=== PATIENT | female | born 1935 | race Caucasian/White ===

== ENCOUNTER 2022-10-30 14:30 | Inpatient (IN) | payer MEDICARE, OTHER ==
[2022-10-30] VITALS (7 sets, daily range): BP systolic 98–99; BP diastolic 49–60; PULSE 86–118; RESP 18–22; TEMP 98.8–100.4; O2SAT 88–100
[~2022-10-30] VITALS: Ht 152.4 cm; Wt 69.9 kg
[2022-10-30] MEDS ORDERED: ALBUTEROL 0.083% 2.5 MG/3 ML NEBU INH ONE (14:45)
[2022-10-30] MEDS ORDERED: PIPERACILLIN/TAZOBACTAM 4.5 GM in DEXTROSE 5% 100 ML IV ONE (14:45)
[2022-10-30] MEDS ORDERED: methylPREDNISolone SS 125 MG/2 ML VIAL IVP ONE (14:45)
[2022-10-30] MEDS ORDERED: ACETAMINOPHEN EXTRA STRENGTH 500 MG TAB PO ONE (14:55)
[2022-10-30] MEDS ORDERED: PIPERACILLIN/TAZOBACTAM 4.5 GM VIAL IV ONE (15:06)
[2022-10-30 15:13] LABS: BASOPHILS # (AUTO) 0.1 K/uL (0.00-0.22); BASOPHILS % (AUTO) 0.5 % (0.0-2.0); HEMATOCRIT 35.9 % (36-48); HEMOGLOBIN 11.6 g/dL (12.0-16.0); LYMPHOCYTES # (AUTO) 6.3 K/uL (2.5-16.5); LYMPHOCYTES % (AUTO) 41.2 % (20.5-51.1); MEAN CORPUSCULAR HEMOGLOBIN 26 pg (27-31); MEAN CORPUSCULAR HGB CONC 32 g/dL (33-37); MONOCYTES # (AUTO) 1.3 K/uL (0.8-1.0); MONOCYTES % (AUTO) 8.3 % (1.7-9.3); NEUTROPHILS # (AUTO) 7.6 K/uL (1.8-7.7); PLATELET COUNT (AUTO) 436 K/uL (140-450); RED BLOOD CELL COUNT(AUTO) 4.48 MIL/uL (4.20-5.40); RED CELL DISTRIBUTION WIDTH 15.9 % (11.6-13.7); WHITE BLOOD COUNT (AUTO) 15.3 K/uL (4.8-10.8)
[2022-10-30 15:30] LABS: ALBUMIN 1.7 g/dL (3.4-5.0); ANION GAP 15.8 (8-16); ASPARTATE AMINOTRANSFERASE 41 U/L (15-37); CARBON DIOXIDE 25.3 mmol/L (21-32); CHLORIDE 102 mmol/L (98-107); CREATININE 0.9 mg/dL (0.6-1.3); GLUCOSE 152 mg/dL (74-106); POTASSIUM 4.1 mmol/L (3.5-5.1); SODIUM SERUM 139 mmol/L (136-145); TOTAL BILIRUBIN 0.5 mg/dL (0.0-1.0); UREA NITROGEN, BLOOD 23 mg/dL (7-18)
--- NOTE | 2022-10-30 15:30 | NUR ---
ONEYDA FROM HOME FOR GEN WEAKNESS, RECENTLY TREATED FOR UTI.
--- NOTE | 2022-10-30 15:41 | NUR ---
CHANGED 4L NASAL CANNULA TO 15L CURAPLEX BUBBLE NASAL CANNULA. SATURATION 95% TO 97%. 10 MG ALBUTEROL GIVEN. BREATH SOUNDS WERE DIMINISHED, BUT IMPROVED AFTER TREATMENT. WILL CONTINUE TO MONITOR PT.
[2022-10-30] MEDS ORDERED: NACL 0.9% 1,000 ML IV ONE (18:40)
[2022-10-30] MEDS ORDERED: ZOLPIDEM 5 MG TAB PO PRN (18:55)
[2022-10-30] MEDS ORDERED: guaiFENesin DM 200/20 MG-10 ML 10 ML UDC PO PRN (18:55)
[2022-10-30] MEDS ORDERED: HYDROcodone/APAP 7.5/325 MG 1 TAB PO PRN (18:55)
[2022-10-30] MEDS ORDERED: ONDANSETRON 4 MG/2 ML VIAL IM/IVP PRN (18:55)
[2022-10-30] MEDS ORDERED: POTASSIUM CHLORIDE 10 MEQ TABER PO PRN (18:55)
[2022-10-30] MEDS ORDERED: DOCUSATE SODIUM 100 MG GELCAP PO PRN (18:55)
[2022-10-30] MEDS ORDERED: ALBUTEROL SULFATE/IPRATROPIU 3 ML SOL IH PRN (19:00)
[2022-10-30] MEDS: PIPERACILLIN/TAZOBACTAM 2.25 GM in DEXTROSE 5% 50 ML IV SCH (19:05)
--- NOTE | 2022-10-30 19:35 | NUR ---
PT RESTING ON BED. A/Ox3. W/ O2 @ 15LPM VIA NC. SATTING AT 96%. ON MONITOR
[2022-10-30] MEDS: NACL 0.9% 1,000 ML IV SCH (19:37)
[2022-10-30 19:44] LABS: CHOL/HDL RATIO 2.9 (1-4.5); FREE T4 (FREE THYROXINE) 1.63 ng/dL (0.76-1.46); MAGNESIUM 1.5 mg/dL (1.8-2.4); THYROID STIMULATING HORMONE 2.15 uIU/mL (0.34-3.74)
[2022-10-30] MEDS: ALBUTEROL SULFATE/IPRATROPIU 3 ML SOL IH SCH (20:05)
--- NOTE | 2022-10-30 20:30 | NUR ---
Patient will be admitted to care of DR CERVANTES. Admited to TELEMETRY. Will go to room 121B. Belongings list completed. Report to ANUP GEORGES. ANUP GEORGES VERBALIZED UNDERSTANDING AND NO FURTHER QUESTION
--- NOTE | 2022-10-30 20:30 | NUR ---
RECEIVED PT FROM ER / GURNEY , ON O2 AT 15LPM / BUBBLER , O2 SAT WNL , IV SITE INTACT AND PATENT , WILL PUT ON PUREWICK , FURTHER ADM. ASSESSMENT WILL BE DONE , PUT PT ON FALL PREVENTION MEASURES , CALL LIGHT WITHIN REACH , BED ALARM ON , ON WHITLEY MONITOR , NO S/SX OF PAIN , WILL CONT. TO MONITOR .
--- NOTE | 2022-10-30 21:21 | NUR ---
per daughter yo her mom living w/ her brother and her brother told her her mom had blood on the stool 2 days ago , and her mom fell 3 days ago - will endorse . Addendum: 10/30/22 at 2125 by Abiola Rocha RN pt is sleeping but when i talks the pt pt can follow simple command , although pt . aNSWERING MY QUESTION BUT STILL HER EYES ARE CLOSE - O2 SAT 98 % , RR 20 , T 98 .6 F , HR 99 , BP 99/ 60 , BS 228 - FOR CLOSELY WATCH . Addendum: 10/30/22 at 2126 by Abiola Rocha RN INFORM CHARGE NURSE GALILEO - PER CHARGE JUST MONITORING - AND WILL ENDORSE ELICIA THE FALL ACCIDENT AND BLOODY STOOL .
--- NOTE | 2022-10-30 23:08 | NUR ---
RT AT BEDSIDE , O2 SAT 99 % - PER RT SHE DECREASE THE O2 FROM 15 L TO 12L - WILL CONT. TO MONITOR
--- NOTE | 2022-10-30 23:08 | NUR ---
ASSESSED PATIENT FOR OXYGENATION STATUS. O2 SAT WAS 100% . DECREASED O2 FLOW TO 12l, PT O2 SATURATION IS NOW 98%. NO 1:00 PM TXN GIVEN BECAUSE PT WAS ASLEEP.
[2022-10-31] VITALS (11 sets, daily range): BP systolic 90–127; BP diastolic 55–70; PULSE 76–89; RESP 16–20; TEMP 97–98.8; O2SAT 96–98
[2022-10-31] MEDS ORDERED: PIPERACILLIN/TAZOBACTAM 2.25 GM VIAL IV ONE ×2 (00:49→06:02)
[2022-10-31] MEDS: PIPERACILLIN/TAZOBACTAM 2.25 GM in DEXTROSE 5% 50 ML IV SCH ×5 (00:53→23:49)
--- NOTE | 2022-10-31 03:30 | NUR ---
ROUNDS , PT AWAKE , O2 SAT 97 % BP 90/61- C/O HEADACHE , T 98. 8 F - WILL MEDICATE
[2022-10-31] MEDS: ACETAMINOPHEN 325 MG TAB PO PRN ×2 (03:34→14:39)
[2022-10-31 05:25] LABS: HEMATOCRIT 31.2 % (36-48); HEMOGLOBIN 10.1 g/dL (12.0-16.0); MEAN CORPUSCULAR HEMOGLOBIN 26 pg (27-31); MEAN CORPUSCULAR HGB CONC 32 g/dL (33-37); MEAN CORPUSCULAR VOLUME 79.5 fL (80-94); PLATELET COUNT (AUTO) 343 K/uL (140-450); RED BLOOD CELL COUNT(AUTO) 3.93 MIL/uL (4.20-5.40); RED CELL DISTRIBUTION WIDTH 15.4 % (11.6-13.7)
[2022-10-31 05:45] LABS: ANION GAP 15.2 (8-16); CARBON DIOXIDE 22.9 mmol/L (21-32); CHLORIDE 105 mmol/L (98-107); GLUCOSE 339 mg/dL (74-106); POTASSIUM 4.1 mmol/L (3.5-5.1); SODIUM SERUM 139 mmol/L (136-145); UREA NITROGEN, BLOOD 23 mg/dL (7-18)
[2022-10-31 05:50] LABS: BASOPHILS % (MANUAL) 0 % (0-2); EOSINOPHILS % (MANUAL) 0 % (0-4); LYMPHOCYTES % (MANUAL) 16 % (20-46); MONOCYTES % (MANUAL) 6 % (5-12)
[2022-10-31] MEDS: ALBUTEROL SULFATE/IPRATROPIU 3 ML SOL IH SCH ×3 (07:00→19:00)
[2022-10-31 07:05] LABS: APPEARANCE,URINE CLEAR (CLEAR); BILIRUBIN,URINE NEGATIVE (NEGATIVE); BLOOD, URINE 1+ (NEGATIVE); COLOR,URINE YELLOW (YELLOW); LEUKOCYTE ESTERASE ,URINE NEGATIVE (NEGATIVE); NITRITE, URINE NEGATIVE (NEGATIVE); UGLUCOSE 2+ (NEGATIVE)
[2022-10-31 07:18] LABS: RBC,URINE 11-20 (MOD) /HPF (0-5); URINE AMORPHOUS URATE 2+ /HPF (None Seen)
--- NOTE | 2022-10-31 07:20 | NUR ---
ENDORSED PT . FOR CONT. OF CARE . ENDORSED TO SYLVIA MOSES TO REMINDS DR. CERVANTES DURING ROUND IF HE WANTS TO ORDER MAG SUPPLEMENT OR TO RPT SERUM MAG . HOME MEDS NOT INCLUDED IN RECONCILE MEDS DUE TO PT IS CONFUSE AND PER M PT.'S DAUGHTER HYUN HER MOM LIVING W/ HER BROTHER THAT'S WHY SHE IS NOT UPDATED WHAT THE MEDS HER MOM TAKING .
--- NOTE | 2022-10-31 07:20 | NUR ---
ASSUMED CONTINUITY OF CARE. INITIAL ASSESSMENT DONE. RE-ORIENTED TO EVENTS AND SURROUNDINGS. KEEP COMFORTABLE ON BED. FALL PRECAUTION APPLIED. CALL LIGHT WITHIN REACH.
--- NOTE | 2022-10-31 07:49 | NUR ---
RT CAME AND SEEN PT..
[2022-10-31 08:08] LABS: T4 (THYROXINE) 6.5 ug/dL (4.5-12.0)
[2022-10-31] MEDS: PANTOPRAZOLE 40 MG TABEC PO SCH (08:30)
--- NOTE | 2022-10-31 10:03 | NUR ---
DR. CERVANTES CAME INFORMED PT. MAG 1.5 ON 10/30/22, AND PER PT. LITA POMPA, PT. ONLY TAKES CEPHALEXIN FOR UTI AND LAST DOSE WAS 10/29/22. DR. CERVANTES ORDERED MAG OX 400 MG PO DAILY AND ONE DOSE NOW. INFORMED CHARGE NURSE MAXI -DESTINI.
--- NOTE | 2022-10-31 10:09 | NUR ---
DR. CERVANTES SEEN PT..
--- NOTE | 2022-10-31 10:20 | NUR ---
PATIENT HAS BEEN SCREENED AND CATEGORIZED HIGH NUTRITION RISK. PATIENT WILL BE SEEN WITHIN 1-2 DAYS OF ADMISSION. FNS CONSULT RECEIVED FOR WOUNDS TRUMAN GIMENEZ RD
[2022-10-31] MEDS: MAGNESIUM OXIDE 400 MG TAB PO SCH (10:42)
--- NOTE | 2022-10-31 12:33 | NUR ---
Patient's Plan of Care was discussed and reviewed with CLERICAL OFFICE: JOSUÉ
[2022-10-31] MEDS: NACL 0.9% 1,000 ML IV SCH (14:19)
--- NOTE | 2022-10-31 19:10 | NUR ---
REPORT GIVEN TO ALEXIA BARRIENTOS. IVF INFUSING WELL. IN STABLE CONDITION.
--- NOTE | 2022-10-31 19:15 | NUR ---
RECEIVED PT FROM AM NURSE FOR CONTINUITY OF CARE. PT IS STABLE
--- NOTE | 2022-10-31 19:56 | NUR ---
PT DENIED BREATHING TX. PT BS CLEAR NO SIGNS OF RESP DISTRESS. SPO2 96% HR 74 10L BUBBLE. WATER REFILLED
--- NOTE | 2022-10-31 21:51 | NUR ---
ROUNDED IN ON PT SATURATION 98% ON 10L. TITRATED PT TO 6L BUBBLE NC. MONITORED PT NO SIGN OF RESP DISTRESS. CLEAR BREATH SOUNDS. PT SATURATION AT THIS TIME IS 98%. WILL CONTINUE TO MONITOR PT THROUGHOUT SHIFT.
[2022-11-01] VITALS (10 sets, daily range): BP systolic 112–133; BP diastolic 51–62; PULSE 75–94; RESP 16–28; TEMP 97.6–98.7; O2SAT 93–98
--- NOTE | 2022-11-01 03:55 | NUR ---
TITRATED PT FROM 6L TO 4L BUBBLE NC. PT IS SLEEPING WITH GOOD CHEST RISE, NO DISTRESS NOTED. SATURATION AT THIS TIME IS 96%. Addendum: 11/01/22 at 0407 by ADRIANNA BARON RT RN NOTIFIED
[2022-11-01] MEDS: NACL 0.9% 1,000 ML IV SCH ×2 (04:34→20:54)
[2022-11-01] MEDS: PIPERACILLIN/TAZOBACTAM 2.25 GM in DEXTROSE 5% 50 ML IV SCH ×4 (05:33→23:29)
[2022-11-01] MEDS: ALBUTEROL SULFATE/IPRATROPIU 3 ML SOL IH SCH ×3 (07:00→19:24)
--- NOTE | 2022-11-01 07:00 | NUR ---
RECEIVED PT ON 4L BUBBLE NASAL CANNULA. SATURATION WAS 96%. BILATERAL FINE CRACKLES LOWER LOBES HEARD ON AUSCULTATION. PT REFUSED BREATHING TREATMENT. WILL TRY AGAIN LATER.
--- NOTE | 2022-11-01 07:15 | NUR ---
ASSUMED CONTINUITY OF CARE. INITIAL ASSESSMENT DONE. KEEP COMFORTABLE ON BED. HOB ELEVATED. FALL PRECAUTION APPLIED. CALL LIGHT WITHIN REACH.
--- NOTE | 2022-11-01 07:15 | NUR ---
ENDORSED PT TO AM NURSE FOR CONTINUITY OF CARE. PT IS STABLE
--- NOTE | 2022-11-01 08:00 | NUR ---
Patient's Plan of Care was discussed and reviewed with CLEARANCE REP: JOSUÉ
[2022-11-01] MEDS: MAGNESIUM OXIDE 400 MG TAB PO SCH (08:34)
[2022-11-01] MEDS: PANTOPRAZOLE 40 MG TABEC PO SCH (08:34)
[2022-11-01 08:58] LABS: BASOPHILS % (AUTO) 0.1 % (0.0-2.0); HEMATOCRIT 29.8 % (36-48); HEMOGLOBIN 9.9 g/dL (12.0-16.0); LYMPHOCYTES # (AUTO) 1.5 K/uL (2.5-16.5); LYMPHOCYTES % (AUTO) 12.1 % (20.5-51.1); MEAN CORPUSCULAR HEMOGLOBIN 26 pg (27-31); MEAN CORPUSCULAR HGB CONC 33 g/dL (33-37); MEAN CORPUSCULAR VOLUME 77.5 fL (80-94); MONOCYTES # (AUTO) 0.7 K/uL (0.8-1.0); MONOCYTES % (AUTO) 5.7 % (1.7-9.3); NEUTROPHILS # (AUTO) 9.9 K/uL (1.8-7.7); NEUTROPHILS % (AUTO) 82.1 % (42.2-75.2); PLATELET COUNT (AUTO) 357 K/uL (140-450); RED BLOOD CELL COUNT(AUTO) 3.84 MIL/uL (4.20-5.40); RED CELL DISTRIBUTION WIDTH 15.9 % (11.6-13.7); WHITE BLOOD COUNT (AUTO) 12.1 K/uL (4.8-10.8)
[2022-11-01 09:12] LABS: ANION GAP 14.5 (8-16); CHLORIDE 107 mmol/L (98-107); CREATININE 0.8 mg/dL (0.6-1.3); GLUCOSE 153 mg/dL (74-106); POTASSIUM 3.5 mmol/L (3.5-5.1); SODIUM SERUM 140 mmol/L (136-145); UREA NITROGEN, BLOOD 18 mg/dL (7-18)
--- NOTE | 2022-11-01 14:51 | NUR ---
Went to see patient at 1221 to administer a breathing treatment, found patient eating lunch with family present. Family asked if she could finish eating before I give the treatment, I agreed but asked if I could listen to her lungs first. Bilateral lower lobes with fine crackles was heard, no distress noted. Will continue to follow up. Went to back to see patient at 1451, found patient sleeping. As I walked towards her bed, she opened her eyes slightly, I waved and asked her again about getting her breathing treatment. She shook her head, no. I asked her if I could listen to her lungs and she nodded yes and closed her eyes. Patient refused treatment.
--- NOTE | 2022-11-01 16:28 | NUR ---
11/01/22 RD INITIAL ASSESSMENT COMPLETED. PLEASE REFER TO NUTRITION ASSESSMENT UNDER CARE ACTIVITY FOR ESTIMATED NUTRITIONAL NEEDS. 1. CONTINUE MECHANICAL SOFT DIET TOLERATED; RECOMMEND GLUCERNA 1X/DAY TO PROMOTE WOUND HEALING (PROVIDES 220 KCAL, 10 GRAMS PROTEIN) 2. MONITOR WOUNDS AND BLOOD GLUCOSE 3. RD TO FOLLOW-UP 3-5 DAYS, RISK ALEXIA CASTREJON RD
--- NOTE | 2022-11-01 19:09 | NUR ---
REPORT GIVEN TO ALEXIA BARRIENTOS. IVF INFUSING WELL. IN STABLE CONDITION.
--- NOTE | 2022-11-01 19:20 | NUR ---
RECEIVED PT IN STABLE CONDITION FROM AM NURSE FOR CONTINUITY OF CARE
[2022-11-02] VITALS (12 sets, daily range): BP systolic 96–146; BP diastolic 47–79; PULSE 87–120; RESP 19–29; TEMP 87.2–98.4; O2SAT 92–99
[2022-11-02] MEDS: ACETAMINOPHEN 325 MG TAB PO PRN (03:06)
[2022-11-02] MEDS: PIPERACILLIN/TAZOBACTAM 2.25 GM in DEXTROSE 5% 50 ML IV SCH ×3 (05:56→17:57)
[2022-11-02 06:52] LABS: ANION GAP 15.2 (8-16); CARBON DIOXIDE 22.1 mmol/L (21-32); CHLORIDE 107 mmol/L (98-107); CREATININE 0.7 mg/dL (0.6-1.3); GLUCOSE 188 mg/dL (74-106); POTASSIUM 3.3 mmol/L (3.5-5.1); SODIUM SERUM 141 mmol/L (136-145); UREA NITROGEN, BLOOD 13 mg/dL (7-18)
[2022-11-02] MEDS: ALBUTEROL SULFATE/IPRATROPIU 3 ML SOL IH SCH ×3 (07:00→19:21)
--- NOTE | 2022-11-02 07:06 | NUR ---
receive the patient from the production supervisor off shift rn in rm 121B aox2-3 with episode of confusion . admitting diagnosis of hypoxia , pneumonia . still with antibiotics . will continue to monitor
--- NOTE | 2022-11-02 07:15 | NUR ---
PT WAS FOUND ON 2LNC SATURATION AT THIS TIME IS 96%. SPOKE WITH PATIENT SHE STATED SHE WAS NOT IN ANY RESP DISTRESS AND REFUSED HER TREATMENT. AUSCULTATED PATIENT CLEAR BREATH SOUNDS HEARD BILATERALLY, GOOD CHEST RISE AND NO RESP DISTRESS NOTED. PT IS RESTING IN BED, WILL TRY TX AGAIN LATER. WILL CONTINUE TO MONITOR PT THROUGHOUT SHIFT.
[2022-11-02 07:25] LABS: BASOPHILS % (AUTO) 0.1 % (0.0-2.0); HEMATOCRIT 30.2 % (36-48); HEMOGLOBIN 10.1 g/dL (12.0-16.0); LYMPHOCYTES # (AUTO) 1.5 K/uL (2.5-16.5); LYMPHOCYTES % (AUTO) 15.8 % (20.5-51.1); MEAN CORPUSCULAR HEMOGLOBIN 26 pg (27-31); MEAN CORPUSCULAR HGB CONC 33 g/dL (33-37); MEAN CORPUSCULAR VOLUME 77.6 fL (80-94); MONOCYTES # (AUTO) 0.7 K/uL (0.8-1.0); MONOCYTES % (AUTO) 7.8 % (1.7-9.3); NEUTROPHILS # (AUTO) 7.3 K/uL (1.8-7.7); NEUTROPHILS % (AUTO) 76.3 % (42.2-75.2); PLATELET COUNT (AUTO) 357 K/uL (140-450); RED BLOOD CELL COUNT(AUTO) 3.89 MIL/uL (4.20-5.40); RED CELL DISTRIBUTION WIDTH 15.5 % (11.6-13.7); WHITE BLOOD COUNT (AUTO) 9.6 K/uL (4.8-10.8)
[2022-11-02] MEDS ORDERED: MAG SULF 2000 MG/WATER PREMIX 50 ML IV PRN (08:45)
[2022-11-02] MEDS ORDERED: POTASSIUM CHLORIDE 10 MEQ TABER PO PRN (08:45)
[2022-11-02] MEDS ORDERED: DOCU-299 PO (09:00)
[2022-11-02] MEDS ORDERED: PIPE1SOL IV (09:00)
[2022-11-02] MEDS: MAGNESIUM OXIDE 400 MG TAB PO SCH (09:51)
[2022-11-02] MEDS: PANTOPRAZOLE 40 MG TABEC PO SCH (09:52)
--- NOTE | 2022-11-02 11:00 | NUR ---
DC PLANNING: FAXED THE ORDER FOR STABLE FOR TRANSFER TO [facility]. AWAITING FOR RESPONSE. CM TO FOLLOW Addendum: 11/02/22 at 1701 by Alexa Clarke RN DC PLANNING: CALLED [facility] ON HOLD FOR LONG PERIOD OF TIME, UNABLE TO LEAVE MESSAGE. CM TO FOLLOW
--- NOTE | 2022-11-02 13:03 | NUR ---
GAVE PT HER 1300 SCHEDULED TREATMENT. PT HAD AUDIBLE WHEEZING AT THIS TIME HER SATURATION WAS 92% ON 2L BUBBLE NASAL CANULA. POST TX PT HAD IMPROVED AERATION, CLEAR BS BILATERALLY. PT STATED THAT SHE HAD A HEADACHE RN NOTIFIED. WILL CONTINUE TO MONITOR THROUGHOUT SHIFT
--- NOTE | 2022-11-02 13:07 | NUR ---
Architectural Inspector SPORT PSYCHOLOGIST went to pts. room. Pt. looked so tired and unable to particpate in this interview, SPORT PSYCHOLOGIST called son/caregiver. Son stated pt. is cognitively sharp, but the UTI has thrown her off. Son stated pt. has a vision issue and cannot make out people. Son confirmed the demographics on this facesheet. This SPORT PSYCHOLOGIST conducted a discharge planning assessment.
[2022-11-02] MEDS ORDERED: NACL 0.9% 1,000 ML IV SCH (13:45)
[2022-11-02] MEDS: NACL 0.9% 1,000 ML IV SCH (14:02)
--- NOTE | 2022-11-02 14:02 | NUR ---
heart rate 145 . got an order normal saline bolus from Md bryson . note and carried out
[2022-11-02] MEDS ORDERED: NACL 0.9% 1,000 ML IV ONE (14:05)
--- NOTE | 2022-11-02 14:30 | NUR ---
WOUND CARE EVALUATION NOTES: REASON FOR EVALUATION: SACRAL WOUND WOUND ASSESSMENT COMPLETED ON THIS 87 Y/O FEMALE ADMITTED TO [facility] UNIT FOR HYPOXIA, PNEUMONIA. PATIENT IS FROM HOME. PAST MEDICAL HISTORY INCLUDES DM, HTN, CVA. ALL ABOVE INFORMATION WAS OBTAINED FROM THE ADMISSION H&P. PATIENT IS AAOX3, ON O2 VIA NC, COOPERATIVE, ABLE TO ASSIST IN TURNS. SKIN TURGOR LOOSE. PLAN OF CARE AND PRESSURE PREVENTATIVE MEASURES DISCUSSED WITH PATIENT AND PRIMARY RN. PATIENT REINFORCEMENT NEEDED. PATIENT ADMITTED WITH SACRALCOCCYX AND LEFT BUTTOCK WOUND. COMORBIDITIES RELATED TO FURTHER SKIN BREAKDOWN SUCH DECREASED MOBILITY AND HX OF DM. INTEGUMENTARY: - LEFT BUTTOCK PRESSURE ULCER STAGE II 0.5 X 0.5 X 0.1 CM. WOUND BED NON-BLANCHABLE, NO DRAINAGE, EXUDATE, OR ESCHAR. FULLY GRANULATING WOUND BED. YIN-WOUND PINK, INTACT. - SACRALCOCCYX PRESSURE ULCER STAGE II OPEN BLISTER 0.5 X 0.5 X 0.1 CM. WOUND BED NON-BLANCHABLE REDNESS, NO DRAINAGE, EXUDATE, ODOR, ESCHAR. FULLY GRANULATING. PERIWOUND INTACT, PINK. RECOMMENDATIONS: - LEFT BUTTOCK PRESSURE ULCER STAGE II: CLEANSE WITH NS, PAT DRY, APPLY HYDROGEL, AND COVER WITH FOAM DRESSING DAILY AND PRN IF SOILED. - SACRALCOCCYX PRESSURE ULCER STAGE II OPEN BLISTER:CLEANSE WITH NS, PAT DRY, APPLY HYDROGEL, AND COVER WITH FOAM DRESSING DAILY AND PRN IF SOILED. - OFFLOAD BILATERAL HEELS BY PLACING BILATERAL HEEL PROTECTORS. - ASSIST IN TURNING AND REPOSITIONING PATIENT Q2H TO LEFT AND RIGHT SIDE TO OFFLOAD SACRALCOCCYX. - ASSESS AND MONITOR SKIN CONDITION DURING POSITION CHANGE. PLEASE PAY ATTENTION TO SACRALCOCCYX AND HEELS. - KEEP SKIN DRY AND CLEAN AT ALL TIMES. - RD CONSULT RECOMMENDATIONS DISCUSSED WITH PRIMARY RN. WILL FOLLOW-UP PATIENT Q7-10 DAYS AND PRN. PLEASE CONTACT WOUND CARE NURSE FOR ANY CONCERNS AND CHANGES IN WOUND CONDITION.
--- NOTE | 2022-11-02 15:15 | NUR ---
heart rate is 102 at this time after a bolus of 1liter of normal saline . will continue to monitor . the patient is on normal saline at 60mls/hr continuos
--- NOTE | 2022-11-02 19:26 | NUR ---
will endorse to night filler rn for continuity of care for respiaratory comfort , antibiotics for pneumonia . will continue to monitor
--- NOTE | 2022-11-02 19:30 | NUR ---
RECEIVED REPORT FROM DAY SHIFT NURSE EDWIN FOR CONTINUITY OF CARE. PATIENT IS A&O X2-3, WITH CONFUSION. PATIENT IS ON NC 2L WITH BUBBLER; BREATHING IS NORMAL WITH SYMMETRICAL RISE AND FALL OF CHEST. IV IS A 18G LAC; RUNNING NS AT 60. PATIENT IS SLEEPING IN SEMI-FOWLERS POSITION. BED IS IN LOWEST POSITION, WHEELS LOCKED, CALL LIGHT IN PLACE. WILL CONTINUE TO OBSERVE PATIENT.
--- NOTE | 2022-11-02 20:08 | NUR ---
PATIENT'S SON ALFRED CALLED AND INQUIRED ABOUT HIS MOTHER'S UTI INFECTION. I EXPLAINED TO THE SON THAT THE LAST URINE SAMPLE ON OCTOBER 31 SHOWS PRESENCE OF INFECTION AND THAT HIS MOTHER WAS CURRENTLY RECEIVING ANTIBIOTICS. HE ASKED IF IT WAS THE ZOSYN THAT WE WERE GIVING HER. I STATED YES; HE SAYS THAT'S NOT RIGHT, IT WILL HELP HER PNA. HE WANTS TO HERE FROM THE DOCTOR TOMORROW ABOUT THE PLAN FOR THE UTI.
--- NOTE | 2022-11-02 23:20 | NUR ---
RECEIVED CALL FROM JAMAICA AT [facility] AT 2139; WAS INFORMED THAT PATIENT HAD BEEN ACCEPTED TO [facility] AND WAS PENDING BED PLACEMENT. AT 2150 RECEIVED CALL BACK THAT [facility] NOW HAD A BED FOR THE PATIENT. PATIENT IS BEING ASSIGNED RM 408 IN [address] [place]. PATIENT IS BEING ACCEPTED BY DR. MARY BAY AND IS ASSIGNED TO DESTINI MILLER FOR TONIGHT. TRANSPORT HAD BEEN SCHEDULED BY [facility] FOR MAKE UP GIRL AT 2300 BY [facility]. DESTINI MILLER'S NUMBER WAS [phone]; JAMAICA'S NUMBER WAS [phone]. MESSAGED MD OF TRANSFER TO [facility]. COMPLETED D/C; THEN I COMPLETED D/C PAPERWORK AND OBTAINED IMAGE CD. ALL PAPERWORK AND CD WERE PLACED IN FOLDER FOR [facility] PICKUP. CALLED DESTINI MILLER AT [facility] AND GAVE REPORT. NOTIFIED PATIENT'S SON ALFRED OF TRANSFER TO [facility], GAVE HIM DESTINI MILLER'S NAME AND OFFICIAL PHONE NUMBER FOR [facility]; ALSO INFORMED HIM OF THE ADMITTING DR (MARY BAY). SON ASKED TO SPEAK TO MOTHER OVER PHONE TO PUT HER AT EASE FOR WHEN TRANSFER OCCURS. SON TALKED TO PATIENT ON THE PHONE. PATIENT WENT BACK TO SLEEPING; BREATHING IS NORMAL WITH SYMMETRICAL RISE AND FALL OF CHEST. PATIENT IS STABLE. WILL CONTINUE TO OBSERVE PATIENT.
--- NOTE | 2022-11-02 23:45 | NUR ---
[facility] SHOWED UP AND PICKED UP PATIENT TO SEND TO [facility]. REPORT AND FOLDER (WITH PAPERWORK AND CD) WAS GIVEN TO EMT NGA. PATIENT'S BELONGINGS WERE GIVEN TO PUBLIC SPEAKING TEACHER IN BELONGINGS BAG. PATIENT WAS UNHOOKED FROM IV; AND LEFT UNIT WITH PUBLIC SPEAKING TEACHER AT 2340.
[2022-11-03] MEDS ORDERED: SKINTEGRITY HYDROGEL TP SCH (13:00)
== END 2022-11-02 23:40 | disposition short-term general hospital (02) | DRG 871 ==
LOC: MED 14:30 → MTU 16:37
PROVIDERS: ADMIT Family Medicine; ATTEND Family Medicine
DX: A41.9 Sepsis, unspecified organism (principal); E43 Unspecified severe protein-calorie malnutrition; G93.41 Metabolic encephalopathy; J96.01 Acute respiratory failure with hypoxia; J69.0 Pneumonitis due to inhalation of food and vomit; N39.0 Urinary tract infection, site not specified; D64.9 Anemia, unspecified; E86.0 Dehydration; Z20.822 Contact with and (suspected) exposure to COVID-19; E11.9 Type 2 diabetes mellitus without complications; I10 Essential (primary) hypertension; Z86.73 Personal history of transient ischemic attack (TIA), and cerebral infarction without residual deficits; Z68.30 Body mass index [BMI] 30.0-30.9, adult
CPT/HCPCS: 36415; 71045; 80048; 80053; 81001; 82150; 82550; 83036; 83605; 83690; 83735; 83874; 83880; 84100; 84436; 84439; 84443; 84479; 84484; 85025; 85610; 85730; 87040; 87086; 93005; 94640; 96365; 96375; 97530; 99291; 99292; A4649; A6248; J2543; J2930; J7060; J7613; Q0092